=== PATIENT | male | born 1940 | race Caucasian/White ===

== ENCOUNTER 2018-05-05 20:04 | Inpatient (IN) ==
[2018-05-05] MEDS ORDERED: Sod Chloride 0.9% Inj 1,000 ML IV.SIG ONE (20:28)
--- NOTE | 2018-05-05 20:38 | ED ---
HPI General Chief complaint: Altered Mental Status Stated complaint: Cardiac complaint Time Seen by Provider: 05/05/18 20:27 Source: patient and EMS Mode of arrival: EMS Limitations: no limitations History of Present Illness HPI Narrative: 77-year-old male presents to the emergency department from local assisted living [facility] for evaluation of generalized weakness. According to the project coordinator rn report the patient activated his own medic alert button and paramedics found him in his room sitting in chair with generalized weakness. Upon their initial assessment patient was afebrile blood sugar was 131 patient was hypotensive and was noted on monitor to be in a sinus tachycardia with frequent unifocal PVCs. Patient was administered supplemental oxygen as well as a bolus of normal saline with improvement of blood pressure as well as decreased rate of sinus tachycardia and diminished frequency of unifocal PVCs. Paramedics stated that his plan was to start patient on a bolus of lidocaine however reportedly the patient refused lidocaine administration. Patient reports no known allergies. Patient here states that he accidentally hit his medic alert button while he was transferred positioning from the bed to his chair and had not felt poorly and had no intention of calling paramedics. Patient states he normally has a low blood pressure and that is normal for him. Patient has an indwelling morphine pain pump that he states was last filled approximately 1 year ago and has not been refilled and has had previous prescription for Percocet for neck pain which he does not have at this time and does not take also was given prescription by his primary care provider Dr. Emanuel tramadol which she also does not take. Patient does not report headache confusion difficulty with vision fever has had mild cough no shortness of breath no chest pain no palpitations no abdominal pain no reported nausea or vomiting no difficulty with bowel movements and no dysuria. Patient denies any pain at this time. Patient denies any focal weakness. Patient denies any fever chills. Patient states he has no chronic medical conditions and takes no prescription medications. According to paramedics a family member was present briefly at the assisted living facility but left before the paramedics could question them regarding the patient's medical history. No family members transported with the patient. According to the paramedics patient also commented that he could not remember anything past breakfast this morning patient states that he he does not recall eating lunch but he typically does not eat lunch and does not report any other activities throughout the day since breakfast until the paramedics arrived. Patient reportedly lives at assisted living [facility] and the independent living side and this is still living facility staff reportedly does not have access to any of his medical history medications allergies and he is not monitored as far as his medical appointments or activity, per EMS report. Complaint: generalized weakness Onset (ago): unknown (possibly since this morning) Duration: other (unknown) Location: generalized Severity: moderate Quality: other (none) Relieving factors: none Exacerbating factors: none Context: other (patient denies) Related Data Home Medications Medication Instructions Recorded Confirmed tramadol See Label Instructions .ROUTE 05/05/18 05/05/18 .COMPLEX Allergies Allergy/AdvReac Type Severity Reaction Status Date / Time No Known Allergies Allergy Verified 05/05/18 21:01 Review of Systems ROS: all other systems reviewed are negative PMFSH History History Provided By: Patient (chronic neck pain; indwelling morphine pain pump) Surgical History Surgical History H/O neck surgery (Acute) Social History Social History Substance History: No History of Abuse Smoking Status: Unknown if ever smoked How Often Do You Have a Drink Containing Alcohol: Never Recent Travel in [facility] within the Last 8 Weeks: No Recent Out of Country Travel within the Last 8 Weeks: No Exam Narrative Exam Narrative: GENERAL: Well-developed well-nourished male in no acute distress no respiratory distress GCS 14 mild confusion as to day of the week but knows today's date SKIN: Focused skin assessment warm/dry. HEAD: Atraumatic. Normocephalic. EYES: Pupils equal and round. No scleral icterus. No injection or drainage. ENT: No nasal bleeding or discharge. Mucous membranes pink and moist. Airway is patent. NECK: Trachea midline. No JVD. Supple no midline tenderness to direct palpation. CARDIOVASCULAR: Increased regular rate and rhythm. No murmur appreciated. RESPIRATORY: No accessory muscle use. Clear to auscultation. Breath sounds equal bilaterally. GASTROINTESTINAL: Abdomen soft, non-tender, nondistended. Hepatic and splenic margins not palpable. MUSCULOSKELETAL: No obvious deformities. No clubbing. No cyanosis. No edema. NEUROLOGICAL: Awake and alert. No obvious cranial nerve deficits. Motor grossly within normal limits. No pronator drift. No limb ataxia. Sensory exam grossly intact. Normal speech. PSYCHIATRIC: Appropriate mood and affect; insight and judgment normal. Course Consultations Consultation #1: discussed with Dr Sanchez Re: admission for sepsis Initial Documented Vital Signs Temperature 99.2 F 05/05/18 20:30 Pulse Rate 126 H 05/05/18 20:30 Respiratory Rate 16 05/05/18 20:30 Blood Pressure 116/66 05/05/18 20:30 Pulse Oximetry 94 L 05/05/18 20:30 Last Documented Vital Signs Temperature 99.2 F 05/05/18 20:30 Pulse Rate 101 H 05/05/18 22:44 Respiratory Rate 14 05/05/18 22:44 Blood Pressure 96/56 L 05/05/18 22:44 Pulse Oximetry 96 05/05/18 22:44 Critical Care Time Critical Care Time: Yes Total Critical Care Time: 30 Attestation: Aggregate critical care time was 30 minutes. Time to perform other separately billable procedures was not included in the critical care time. My time did not include minutes spent treating any other patients simultaneously or on activities that did not directly contribute to the patient's treatment. The services I provided to this patient were to treat and/or prevent clinically significant deterioration that could result in: Respiratory failure, septic shock, arrhythmia, I provided critical care services requiring my management, as noted below: Chart data review, documentation time, medication orders and management, vital sign assessments/reviewing monitor data, ordering and reviewing lab tests, ordering and interpreting/reviewing x-rays and diagnostic studies, care of the patient and discussion of the patient with the admitting physicians. Medical Decision Making MDM Narrative Medical decision making narrative: 77-year-old male presents to the emergency department from assisted living facility with generalized weakness hypotension tachycardia and previous multiple unifocal PVCs heart rate has improved however remains tachycardic given additional IV fluid bolus normotensive systolic [address] brain noncontrast ordered blood sugar reportedly 131 per EMS EKG is sinus tachycardia rate [address] elevation injury pattern or ectopy noted although age-indeterminate septal changes for possible previous septal [place] At 9:25 PM brother is at bedside patient is able to identify who his brother is still knows the date and now knows the day of the week. Heart rate is 115 blood pressure is 104/58 patient given initial bolus of normal saline patient is identified to have leukocytosis of 20,600 with left shift 93% neutrophils stable hemoglobin of 14 and platelet count patient also identified to have elevated lactic acid level of 3.5 chest x-ray reveals no obvious lobar infiltrate or acute finding patient has no obvious skin rash urinalysis is pending on chemistries patient has hypokalemia of 3.1 oral potassium 40 mg administered patient also noted to have some renal insufficiency with a creatinine of 1.6 and patient identified to have hypomagnesemia 1.3 patient given 1 g of magnesium sulfate IV piggyback. Patient will be admitted for severe sepsis with tachycardia leukocytosis with left shift elevated lactic acid and report of hypotension; source unknown patient's mentation has improved to GCS of 15 patient has no headache no nuchal rigidity. Patient may have early pneumonia although no infiltrate is identified on chest x-ray patient does have congested wet cough. We will also follow-up on urinalysis results patient presumptively administered IV Zosyn and vancomycin as part of initial evaluation for altered mental status with tachycardia and low-grade temperature elevation. Patient is aware of plan for admission with which she is agreeable. Brother at bedside is aware patient will be admitted. CK total 110 not elevated troponin I 0.04, not elevated TSH is 0.387 this is within normal range Medical Screen Exam Complete: Yes Emergency Medical Condition: Yes Differential Diagnosis Differential Diagnosis: Generalized weakness, anemia, sepsis, TIA, CVA, pneumonia, UTI, arrhythmia, ACS, [place] Medical Records Medical records reviewed: Yes I reviewed the patient's medical records. no prior HH visit Lab Data Lab results reviewed: Yes I reviewed the patient's lab results. Result diagrams: 05/05/18 20:40 05/05/18 20:40 Lab Results 05/05/18 05/05/18 05/05/18 Range/Units 20:40 20:40 20:40 WBC 20.6 H (4.0-11.0) th/mm3 RBC 4.46 L (4.50-5.90) mil/mm3 Hgb 14.2 (13.0-17.0) gm/dL Hct 41.1 (39.0-51.0) % MCV 92.0 (80.0-100.0) fL MCH 31.7 (27.0-34.0) pg MCHC 34.5 (32.0-36.0) % RDW 13.6 (11.6-17.2) % Plt Count 194 (150-450) th/mm3 MPV 7.5 (7.0-11.0) fL Neut % (Auto) 93.9 H (16.0-70.0) % Lymph % (Auto) 1.7 L (9.0-44.0) % [place] % (Auto) 4.3 (0.0-8.0) % Eos % (Auto) 0.0 (0.0-4.0) % Baso % (Auto) 0.1 (0.0-2.0) % Neut # (Auto) 19.4 H (1.8-7.7) th/mm3 Lymph # (Auto) 0.4 L (1.0-4.8) th/mm3 [place] # (Auto) 0.9 (0.0-0.9) th/mm3 Eos # (Auto) 0.0 (0.0-0.4) th/mm3 Baso # (Auto) 0.0 (0.0-0.2) th/mm3 WBC Differential . Differential Comment Auto diff final PT 12.0 H (9.8-11.6) sec INR 1.2 Ratio Sodium 141 (136-145) meq/L Potassium 3.1 L (3.5-5.1) meq/L Chloride 105 (98-107) meq/L Carbon Dioxide 23.9 (21.0-32.0) meq/L Anion Gap 12 (5-15) meq/L BUN 18 (7-18) mg/dL Creatinine 1.60 H (0.60-1.30) mg/dL Estimated GFR 42 L (>89) mL/min Random Glucose 122 H (74-106) mg/dL Lactic Acid (0.4-2.0) mmol/L Calcium 8.2 L (8.5-10.1) mg/dL Magnesium 1.3 L (1.5-2.5) mg/dL Total Bilirubin 0.6 (0.2-1.0) mg/dL AST 30 (15-37) U/L ALT 35 (12-78) U/L Alkaline Phosphatase 60 (45-117) U/L Total Creatine Kinase 110 (39-308) U/L Troponin I 0.04 (0.02-0.05) ng/mL Total Protein 6.8 (6.4-8.2) g/dL Albumin 3.1 L (3.4-5.0) g/dL TSH 0.387 (0.358-3.740) uIU/mL Urine Color (Yellw/Straw) Urine Clarity (Clear) Urine pH (5.0-8.5) Ur Specific Burke (1.002-1.035) Urine Protein (Neg-Trace) mg/dL Urine Glucose (UA) (Negative) mg/dL Urine Ketones (Negative) mg/dL Urine Occult Blood (Negative) Urine Nitrate (Negative) Urine Bilirubin (Negative) Urine Urobilinogen (Less than 2) mg/dL Ur Leukocyte Esterase (Negative) Urine RBC (0-3) /hpf Urine WBC (0-5) /hpf Ur Squamous Epith Cells (0-5) /hpf Urine Bacteria (None) /hpf Urine Mucus (Occasional) /lpf Micro UA Comment Ur Microscopic Review Urine Culture Comments 05/05/18 05/05/18 05/05/18 Range/Units 20:40 21:55 22:55 WBC (4.0-11.0) th/mm3 RBC (4.50-5.90) mil/mm3 Hgb (13.0-17.0) gm/dL Hct (39.0-51.0) % MCV (80.0-100.0) fL MCH (27.0-34.0) pg MCHC (32.0-36.0) % RDW (11.6-17.2) % Plt Count (150-450) th/mm3 MPV (7.0-11.0) fL Neut % (Auto) (16.0-70.0) % Lymph % (Auto) (9.0-44.0) % [place] % (Auto) (0.0-8.0) % Eos % (Auto) (0.0-4.0) % Baso % (Auto) (0.0-2.0) % Neut # (Auto) (1.8-7.7) th/mm3 Lymph # (Auto) (1.0-4.8) th/mm3 [place] # (Auto) (0.0-0.9) th/mm3 Eos # (Auto) (0.0-0.4) th/mm3 Baso # (Auto) (0.0-0.2) th/mm3 WBC Differential Differential Comment PT (9.8-11.6) sec INR Ratio Sodium (136-145) meq/L Potassium (3.5-5.1) meq/L Chloride (98-107) meq/L Carbon Dioxide (21.0-32.0) meq/L Anion Gap (5-15) meq/L BUN (7-18) mg/dL Creatinine (0.60-1.30) mg/dL Estimated GFR (>89) mL/min Random Glucose (74-106) mg/dL Lactic Acid 3.5 H 2.0 (0.4-2.0) mmol/L Calcium (8.5-10.1) mg/dL Magnesium (1.5-2.5) mg/dL Total Bilirubin (0.2-1.0) mg/dL AST (15-37) U/L ALT (12-78) U/L Alkaline Phosphatase (45-117) U/L Total Creatine Kinase (39-308) U/L Troponin I (0.02-0.05) ng/mL Total Protein (6.4-8.2) g/dL Albumin (3.4-5.0) g/dL TSH (0.358-3.740) uIU/mL Urine Color Iris (Yellw/Straw) Urine Clarity Hazy H (Clear) Urine pH 5.0 (5.0-8.5) Ur Specific Burke 1.023 (1.002-1.035) Urine Protein 30 H (Neg-Trace) mg/dL Urine Glucose (UA) Negative (Negative) mg/dL Urine Ketones Trace H (Negative) mg/dL Urine Occult Blood Large H (Negative) Urine Nitrate Negative (Negative) Urine Bilirubin Negative (Negative) Urine Urobilinogen 2.0 H (Less than 2) mg/dL Ur Leukocyte Esterase Negative (Negative) Urine RBC 103 H (0-3) /hpf Urine WBC 5 (0-5) /hpf Ur Squamous Epith Cells <1 (0-5) /hpf Urine Bacteria Rare H (None) /hpf Urine Mucus Few H (Occasional) /lpf Micro UA Comment Culture not ind Ur Microscopic Review Not Reportable Urine Culture Comments Culture not ind Imaging Data Radiologist's impression: Chest X-Ray 05/05/18 20:28 CONCLUSION: 1. Elevation of the right hemidiaphragm. 2. No focal infiltrate or pulmonary vascular congestion. Head CT 05/05/18 20:29 CONCLUSION: 1. Age-appropriate atrophy. 2. No acute findings in the brain. . ECG Data EKG Prior to Arrival: No Prior ECG tracings: not available for review Interpretation: EKG sinus tachycardia rate [address] elevation injury pattern or ectopy noted Discharge Plan Discharge Disposition Patient Disposition: 30 Still Patient Discharge Condition Condition: Stable Discharge Details Diagnosis: Severe sepsis, Altered mental status, PVC's (premature ventricular contractions ) Physicians Team ED Provider: Adriana Mackey Primary Care Provider: Yogesh Emanuel Rxs /Orders / Referrals /Forms Prescriptions: No Action tramadol 50 mg Tablet See Label Instructions .ROUTE .COMPLEX RF: 0 Discharge Interventions Interventions: Vital Signs Last Done: 05/05/18 22:44 Status ED Status: With Doctor
--- NOTE | 2018-05-05 20:52 | XR ---
EXAM DATE: 05/05/2018 8:47 PM EDT AGE/SEX: 77 years / Male INDICATIONS: Cough. CLINICAL DATA: This is the patient's initial encounter. Patient reports that signs and symptoms have been present for 1 day and indicates a pain score of 0/10. MEDICAL/SURGICAL HISTORY: None. None. COMPARISON: No prior exams available for comparison. FINDINGS: There is elevation of the right hemidiaphragm. The heart is normal. The pulmonary vascular pattern is normal. The lungs are clear. CONCLUSION: 1. Elevation of the right hemidiaphragm. 2. No focal infiltrate or pulmonary vascular congestion. Electronically signed by: Jus Glasgow MD 05/05/2018 8:51 PM EDT
[2018-05-05 20:59] LABS: Baso % (Auto) 0.1 % (0.0-2.0); Hematocrit 41.1 % (39.0-51.0); Hemoglobin 14.2 gm/dL (13.0-17.0); Lymph # (Auto) 0.4 th/mm3 (1.0-4.8); Lymph % (Auto) 1.7 % (9.0-44.0); Mean Corpuscular HGB Conc 34.5 % (32.0-36.0); Mean Corpuscular Hemoglobin 31.7 pg (27.0-34.0); Mean Platelet Volume 7.5 fL (7.0-11.0); Mono # (Auto) 0.9 th/mm3 (0.0-0.9); Mono % (Auto) 4.3 % (0.0-8.0); Neut # (Auto) 19.4 th/mm3 (1.8-7.7); Neut % (Auto) 93.9 % (16.0-70.0); Platelet Count 194 th/mm3 (150-450); Red Blood Count 4.46 mil/mm3 (4.50-5.90); Red Cell Distribution Width 13.6 % (11.6-17.2); White Blood Count 20.6 th/mm3 (4.0-11.0)
[2018-05-05 21:13] LABS: Albumin 3.1 g/dL (3.4-5.0); Anion Gap 12 meq/L (5-15); Aspartate Aminotransferase 30 U/L (15-37); Blood Urea Nitrogen 18 mg/dL (7-18); Calcium 8.2 mg/dL (8.5-10.1); Carbon Dioxide 23.9 meq/L (21.0-32.0); Chloride 105 meq/L (98-107); Glomerular Filtration Rate 42 mL/min (>89); Glucose,Random 122 mg/dL (74-106); INR 1.2 Ratio; Magnesium 1.3 mg/dL (1.5-2.5); Potassium 3.1 meq/L (3.5-5.1); Sodium 141 meq/L (136-145)
[2018-05-05 21:14] LABS: Alanine Aminotransferase 35 U/L (12-78)
[2018-05-05] MEDS ORDERED: Piperacil/Tazo 4.5 GM Premix 4.5 GM/100 ML BAG IV.SIG ONE (21:18)
[2018-05-05] MEDS ORDERED: Vancomycin Inj 1,000 MG in Sodium Chlor 0.9% Inj 250 ML IV.SIG ONE (21:18)
[2018-05-05] MEDS ORDERED: Mag Sulf 1 gm/100 ml Premix 100 ML IV.SIG ONE (21:20)
[2018-05-05] MEDS ORDERED: Thiamine Inj 100 MG in Sodium Chlor 0.9% Inj 100 ML IV.SIG ONE (21:21)
[2018-05-05 21:23] LABS: Alkaline Phosphatase 60 U/L (45-117); Creatine Kinase 110 U/L (39-308); Thyroid Stimulating Hormone 0.387 uIU/mL (0.358-3.740); Total Protein 6.8 g/dL (6.4-8.2); Troponin I 0.04 ng/mL (0.02-0.05)
[2018-05-05 23:03] LABS: Bacteria,Urine Rare /hpf; Bilirubin,Urine Negative (Negative); Clarity,Urine Hazy (Clear); Color,Urine Amber (Yellw/Straw); Glucose,Urine (UA) Negative (Negative); Leukocyte Esterase,Urine Negative (Negative); Mucus,Urine Few /lpf (Occasional); Nitrite,Urine Negative (Negative); Specific Gravity,Urine 1.023 (1.002-1.035); Squamous Epithelial Cell,Urine <1 /hpf (0-5)
--- NOTE | 2018-05-05 23:32 | CT ---
EXAM DATE: 05/05/2018 11:19 PM EDT AGE/SEX: 77 years / Male INDICATIONS: Altered mental status. CLINICAL DATA: This is the patient's initial encounter. Patient reports that signs and symptoms have been present for 1 day and indicates a pain score of 0/10. MEDICAL/SURGICAL HISTORY: None. Fusion, cervical. RADIATION DOSE: 46.13 CTDI (mGy) COMPARISON: No prior exams available for comparison. TECHNIQUE: CT of the head without contrast. Using automated exposure control and adjustment of the mA and/or kV according to patient size, radiation dose was kept as low as reasonably achievable to ob tain optimal diagnostic quality images. DICOM format image data is available electronically for revi ew and comparison. FINDINGS: Cerebrum: The ventricles are normal for age. No evidence of midline shift, mass lesion, hemorrhage or acute infarction. No extraaxial fluid collections are seen. Posterior Fossa: The cerebellum and brainstem are intact. The 4th ventricle is midline. The cerebe llopontine angle is unremarkable. Extracranial: The visualized portion of the orbits is intact. Skull: The calvaria is intact. No evidence of skull fracture. CONCLUSION: 1. Age-appropriate atrophy. 2. No acute findings in the brain. . Electronically signed by: Jose Joya MD 05/05/2018 11:31 PM EDT
[2018-05-05] MEDS ORDERED: Sodium Chlor 0.9% Inj 500 ML IV.SIG SCH (23:45)
[2018-05-06] MEDS ORDERED: Vancomycin Consult Pharmacy OTHER PRN (00:19)
[2018-05-06] MEDS ORDERED: Acetaminophen 325 MG Tablet PO PRN ×2 (00:20→00:36)
[2018-05-06] MEDS ORDERED: Bisacodyl 10 MG Supp RECTAL PRN (00:20)
--- NOTE | 2018-05-06 00:23 | P.HPIM ---
History of Present Illness Primary Care Physician: Yogesh Emanuel MD History of Present Illness: This is a 77-year-old male with no significant PMH who was sent to the ER from [facility] due to generalized weakness. Per report, pt had activated his medical alert button, however he states it was unintentional. Upon EMS arrival, pt noted to hypotensive and tachycardic w/ multiple PVCs, s/p IVF w/ improvement. Reports ongoing cough for "few months" w/ white-colored sputum, seen by PCP and told it was due to allergies, however now w/ yellow/green-colored sputum x1 wk. Denies fever, chills, SOB or chest pain. On arrival, BP 116/66, HR 126, O2 sat 94% on RA, Temp 99.2. CBC 20.6. INR 1.2. K+ 3.1. Creatinine 1.60, previously 1.29 on 02/28/18. Lactic Acid 3.5. CXR w/ no acute findings. U/a w/ hematuria, negative for UTI. S/p Vanc/Zosyn - Diagnosis (1) Sepsis (2) Hypotension (3) REFUGIO (acute kidney injury) (4) Hematuria (5) Hypokalemia Inpatient Certification: I certify that the inpatient services were ordered in accordance with Medicare regulations governing the order. This includes certification that hospital inpatient services are reasonable and necessary and in the case of services not specified as inpatient-only under 42 CFR 419.22(n), that they are appropriately provided as inpatient services in accordance to with the 2-midnight benchmark under 43 CFR 412.3(e) Estimated Total Length of Stay (Days): 2 Plans for Post Hospital Care: Not yet determined Review of Systems PAST FAMILY HISTORY: Reviewed. No h/o DM or CAD All other systems reviewed negative except as stated in HPI PMFSH - History History Provided By: Patient (chronic neck pain; indwelling morphine pain pump) - Surgical History Surgical History: Surgical History (Last Updated 05/05/18 @ 21:00 by Marycruz Soria) H/O neck surgery - Tobacco History Smoking Status: Unknown if ever smoked - Alcohol History How Often Do You Have a Drink Containing Alcohol: Never - Substance Use History Substance History: No History of Abuse - Travel History Recent Travel in the [place] Within the Last 8 Weeks: No Recent Travel Out of the Country Within the Last 8 Weeks: No - Immunization History Tetanus Immunization: Unsure Medications and Allergies Active Medications: Active Medications Acetaminophen (Tylenol) 650 mg PO Q4H PRN PRN Reason: Temp > 100.4 Al Hydroxide/Mg Hydroxide (Milk Of Magnesia Liq) 30 ml PO Q12H PRN PRN Reason: Mild Constipation Bisacodyl (Dulcolax Supp) 10 mg RECTAL DAILY PRN PRN Reason: SEVERE CONSITIPATION Sodium Chloride (Ns Inj) 500 mls @ 0 mls/hr IV.SIG BOLUS JOSE Cefepime HCl 1,000 mg/ Sodium (Chloride) 100 mls @ 200 mls/hr IV.SIG Q12H JOSE Sodium Chloride (Ns Inj) 1,000 mls @ 100 mls/hr IV.CONT .Q10H JOSE Lactulose (Lactulose Liq) 30 ml PO DAILY PRN PRN Reason: SEVERE CONSITIPATION Ondansetron HCl (Zofran Inj) 4 mg IV.PUSH Q6H PRN PRN Reason: NAUSEA OR VOMITING Pharmacy Profile Note (Vancomycin Consult Pharmacy) 1 each OTHER UNSCH PRN PRN Reason: Pharmacy to dose Senna/Docusate Sodium (Elza-Colace) 1 tab PO BID JOSE Sennosides (Senokot) 17.2 mg PO Q12H PRN PRN Reason: Moderate Constipation Sodium Chloride (Ns Flush) 2 ml IV.FLUSH PRN PRN PRN Reason: FLUSH AFTER USING IV ACCESS Allergies Allergy/AdvReac Type Severity Reaction Status Date / Time No Known Allergies Allergy Verified 05/05/18 21:01 Home Medications Medication Instructions Recorded Confirmed Type tramadol See Label Instructions .ROUTE 05/05/18 05/05/18 History .COMPLEX Exam Vital signs: Vital Signs 05/05/18 20:30 05/05/18 21:05 05/05/18 22:44 Temperature 99.2 F Pulse Rate 126 H 114 H 101 H Respiratory Rate 16 16 14 Blood Pressure 116/66 104/58 L 96/56 L Pulse Oximetry 94 L 95 96 Intake & Output 05/05/18 05/05/18 05/06/18 06:59 18:59 06:59 Intake Total 1450 / 1450 Balance 1450 / 1450 Weight 77.111 kg Intake: IV 1450 / 1450 Magnesium Sulfate 1 gm/D5W 100 100 / 100 ml Premix 100 ML @ 100 mls/hr IV.SIG ONCE ONE Rx#:[id number] Zosyn 4.5 GM Premix 4.5 gm In 100 / 100 100 ml @ 200 mls/hr IV.SIG ONCE ONE Rx#:[id number] NS Inj 1,000 ML @ Wide Open IV. 1000 / 1000 SIG BOLUS ONE Rx#:[id number] Vancomycin Inj 1,000 MG In NS 250 / 250 Inj 250 ML @ 250 mls/hr IV.SIG ONCE ONE Rx#:[id number] Narrative: PE: GENERAL: Elderly white male in no acute distress. Normal mentation, following commands. SKIN: Focused skin assessment warm and dry. HEENT: PERRLA, EOMI. No scleral icterus or conjunctival pallor. No lid lag or facial droop. CARDIOVASCULAR: Regular rate and rhythm. No obvious murmurs to auscultation. No chest tenderness to palpation. RESPIRATORY: No obvious rhonchi or wheezing. Clear to auscultation. Breath sounds equal bilaterally. GASTROINTESTINAL: Abdomen soft, non-tender, nondistended. BS normal. MUSCULOSKELETAL: Extremities without clubbing, cyanosis, or edema. No obvious deformities. NEUROLOGICAL: Awake, alert and oriented x4. No focal neurologic deficits. Moving both upper and lower extremities spontaneously. PSYCHIATRIC: Appropriate mood and affect. Insight and judgment normal. Results - Labs CBC & Chem 7: 05/05/18 20:40 05/05/18 20:40 Labs: Short CBC 05/05/18 Range/Units 20:40 WBC 20.6 H (4.0-11.0) th/mm3 Hgb 14.2 (13.0-17.0) gm/dL Hct 41.1 (39.0-51.0) % Plt Count 194 (150-450) th/mm3 BMP 05/05/18 20:40 Sodium 141 Potassium 3.1 L Chloride 105 Carbon Dioxide 23.9 BUN 18 Creatinine 1.60 H Calcium 8.2 L Cardiac Enzymes 05/05/18 Range/Units 20:40 Total Creatine Kinase 110 (39-308) U/L Troponin I 0.04 (0.02-0.05) ng/mL Liver Function 05/05/18 Range/Units 20:40 Total Bilirubin 0.6 (0.2-1.0) mg/dL AST 30 (15-37) U/L ALT 35 (12-78) U/L Alkaline Phosphatase 60 (45-117) U/L Albumin 3.1 L (3.4-5.0) g/dL Urine 05/05/18 Range/Units 21:55 Urine Color Iris (Yellw/Straw) Urine Clarity Hazy H (Clear) Urine pH 5.0 (5.0-8.5) Ur Specific [place] 1.023 (1.002-1.035) Urine Protein 30 H (Neg-Trace) mg/dL Urine Glucose (UA) Negative (Negative) mg/dL - Imaging Impressions Chest X-Ray 05/05/18 20:28 CONCLUSION: 1. Elevation of the right hemidiaphragm. 2. No focal infiltrate or pulmonary vascular congestion. Head CT 05/05/18 20:29 CONCLUSION: 1. Age-appropriate atrophy. 2. No acute findings in the brain. . Caprini VTE Risk Assessment Caprini VTE Risk Assessment: No/Low Risk (score <= 1) Caprini Risk Assessment Model: Point Value = 1 Point Value = 2 Point Value = 3 Point Value = 5 Age 41-60 Minor surgery BMI > 25 kg/m2 Swollen legs Varicose veins or History of unexplained or recurrent spontaneous Oral contraceptives or hormone replacement Sepsis (< 1 month) Serious lung disease, including pneumonia (< 1 month) Abnormal pulmonary function Acute myocardial infarction Congestive heart failure (< 1 month) History of inflammatory bowel disease Medical patient at bed rest Age 61-74 Arthroscopic surgery Major open surgery (> 45 min) Laparoscopic surgery (> 45 min) Malignancy Confined to bed (> 72 hours) Immobilizing plaster cast Central venous access Age >= 75 History of VTE Family history of VTE Factor V Leiden Prothrombin [id number] Lupus anticoagulant Anticardiolipin antibodies Elevated serum homocysteine Heparin-induced thrombocytopenia Other congenital or acquired thrombophilia Stroke (< 1 month) Elective arthroplasty Hip, pelvis, or leg fracture Acute spinal cord injury (< 1 month) Prophylaxis Regimen: Total Risk Factor Score Risk Level Prophylaxis Regimen 0-1 Low Early ambulation 2 Moderate Order ONE of the following: *Sequential Compression Device (SCD) *Heparin 5000 units SQ BID 3-4 Higher Order ONE of the following medications: *Heparin 5000 units SQ TID *Enoxaparin/Lovenox 40 mg SQ daily (WT < 150 kg, CrCl > 30 mL/min) *Enoxaparin/Lovenox 30 mg SQ daily (WT < 150 kg, CrCl > 10-29 mL/min) *Enoxaparin/Lovenox 30 mg SQ BID (WT < 150 kg, CrCl > 30 mL/min) AND/OR *Sequential Compression Device (SCD) 5 or more Highest Order ONE of the following medications: *Heparin 5000 units SQ TID (Preferred with Epidurals) *Enoxaparin/Lovenox 40 mg SQ daily (WT < 150 kg, CrCl > 30 mL/min) *Enoxaparin/Lovenox 30 mg SQ daily (WT < 150 kg, CrCl > 10-29 mL/min) *Enoxaparin/Lovenox 30 mg SQ BID (WT < 150 kg, CrCl > 30 mL/min) AND *Sequential Compression Device (SCD) Assessment and Plan - Assessment (1) Sepsis Code(s): A41.9 - Sepsis, unspecified organism Status: Acute (2) Hypotension Code(s): I95.9 - Hypotension, unspecified Status: Acute (3) REFUGIO (acute kidney injury) Code(s): N17.9 - Acute kidney failure, unspecified Status: Acute (4) Hematuria Code(s): R31.9 - Hematuria, unspecified Status: Acute (5) Hypokalemia Code(s): E87.6 - Hypokalemia Status: Acute - Plan A/P: 1. Sepsis: Temp 99.2, HR 126, WBC 20, Source-unclear, suspected early PNA. S/ p Blood cultures, IV Vanc/Zosyn, continue w/ IV Abx, follow up cultures. Lactic Acid 3.5, repeat 2.0. IVF for hydration. 2. Hypotension: Likely secondary to above, states baseline BP "110's", BP 90' s while in ER, continue w/ IVF, monitor I/O, normal mental status. 3. REFUGIO: Creatinine 1.60, previously 1.29 on 02/28/18, IVF for hydration, monitor I/O, repeat labs in am. 4. Hematuria: U/a w/ significant hematuria, mild bacteriuria, will monitor, continue w/ IV Abx for sepsis, repeat U/a in 1-2wks to eval for persistent hematuria. 5. Hypokalemia: K+ 3.1, s/p 40mEq K+ replacement, will recheck and replace as needed. 6. DVT Prophylaxis: SCD/Teds 7. Social work for d/c planning as needed. 8. Case discussed w/ ER physician at length, labs/records/imaging reviewed by me.
[2018-05-06] MEDS: Sod Chloride 0.9% Inj 1,000 ML IV.CONT SCH ×3 (02:33→22:07)
[2018-05-06] MEDS ORDERED: Senna/Docusate Sodium 8.6/50 MG Tablet PO SCH (09:00)
[2018-05-06 09:37] LABS: Baso % (Auto) 0.2 % (0.0-2.0); Hematocrit 37.7 % (39.0-51.0); Hemoglobin 12.8 gm/dL (13.0-17.0); Lymph # (Auto) 1.1 th/mm3 (1.0-4.8); Lymph % (Auto) 5.5 % (9.0-44.0); Mean Corpuscular Hemoglobin 31.5 pg (27.0-34.0); Mean Corpuscular Volume 92.5 fL (80.0-100.0); Mean Platelet Volume 7.5 fL (7.0-11.0); Mono # (Auto) 1.6 th/mm3 (0.0-0.9); Neut # (Auto) 17.2 th/mm3 (1.8-7.7); Neut % (Auto) 86.3 % (16.0-70.0); Platelet Count 175 th/mm3 (150-450); Red Blood Count 4.07 mil/mm3 (4.50-5.90); Red Cell Distribution Width 14.2 % (11.6-17.2)
[2018-05-06 09:55] LABS: Calcium 7.8 mg/dL (8.5-10.1); Carbon Dioxide 21.6 meq/L (21.0-32.0); Potassium 3.7 meq/L (3.5-5.1)
[2018-05-06] MEDS ORDERED: Vancomycin Inj 1,250 MG in Sodium Chlor 0.9% Inj 250 ML IV.SIG SCH (12:00)
--- NOTE | 2018-05-06 14:17 | P.PNIM ---
Subjective Interval history: Follow-up for SIRS. Patient complains of very scant cough, and just after he eats. No fever or chills. He denies any abdominal pain. He has had 2 loose bowel movements today. He denies any dysuria. Reports a long history of kidney stones. Physical Exam Vital signs: Vital Signs 05/05/18 20:30 05/05/18 21:05 05/05/18 22:44 Temperature 99.2 F Pulse Rate 126 H 114 H 101 H Respiratory Rate 16 16 14 Blood Pressure 116/66 104/58 L 96/56 L Pulse Oximetry 94 L 95 96 05/06/18 02:45 05/06/18 03:16 05/06/18 04:00 Temperature 98 F 98 F Pulse Rate 92 H 84 90 Respiratory Rate 18 16 Blood Pressure 103/56 L 109/65 Pulse Oximetry 100 99 05/06/18 08:00 Temperature 98.0 F Pulse Rate 85 Respiratory Rate 17 Blood Pressure 108/57 L Pulse Oximetry 95 Intake & Output 05/05/18 05/06/18 05/06/18 18:59 06:59 18:59 Intake Total 1551 / 1551 Balance 1551 / 1551 Weight 166 lb 7.184 oz Intake: IV 1551 / 1551 Magnesium Sulfate 1 gm/D5W 100 100 / 100 ml Premix 100 ML @ 100 mls/hr IV.SIG ONCE ONE Rx#:[id number] Zosyn 4.5 GM Premix 4.5 gm In 100 / 100 100 ml @ 200 mls/hr IV.SIG ONCE ONE Rx#:[id number] NS Inj 1,000 ML @ Wide Open IV. 1000 / 1000 SIG BOLUS ONE Rx#:[id number] Thiamine Inj 100 MG In NS Inj 101 / 101 100 ML @ 100 mls/hr IV.SIG ONCE ONE Rx#:[id number] Vancomycin Inj 1,000 MG In NS 250 / 250 Inj 250 ML @ 250 mls/hr IV.SIG ONCE ONE Rx#:[id number] Other: Date of Last Bowel Movement 05/06/18 Weight On Admission 170 lb 0.01 oz Narrative: GENERAL: Well-developed well-nourished. In no acute distress. SKIN: Warm and dry. No lesions noted. CARDIOVASCULAR: Regular rate and rhythm. No murmur appreciated. RESPIRATORY: No accessory muscle use. Clear to auscultation. Breath sounds equal bilaterally. GASTROINTESTINAL: Abdomen soft, non-tender, nondistended. Bowel sounds x4. Pain pump in place right abdomen. MUSCULOSKELETAL: No obvious deformities. No clubbing or cyanosis. No edema. NEUROLOGICAL: Awake and alert. No focal neurological deficits. Moves upper and lower extremities spontaneously. Normal speech. PSYCHIATRIC: Appropriate mood and affect; insight and judgment normal. Results - Labs CBC & Chem 7: 05/06/18 09:04 05/06/18 09:04 Laboratory Results - last 24 hr 05/05/18 05/05/18 05/05/18 20:40 20:40 20:40 WBC 20.6 H RBC 4.46 L Hgb 14.2 Hct 41.1 MCV 92.0 MCH 31.7 MCHC 34.5 RDW 13.6 Plt Count 194 MPV 7.5 Neut % (Auto) 93.9 H Lymph % (Auto) 1.7 L [place] % (Auto) 4.3 Eos % (Auto) 0.0 Baso % (Auto) 0.1 Neut # (Auto) 19.4 H Lymph # (Auto) 0.4 L [place] # (Auto) 0.9 Eos # (Auto) 0.0 Baso # (Auto) 0.0 WBC Differential . Differential Comment Auto diff final PT 12.0 H INR 1.2 Sodium 141 Potassium 3.1 L Chloride 105 Carbon Dioxide 23.9 Anion Gap 12 BUN 18 Creatinine 1.60 H Estimated GFR 42 L POC Glucose Random Glucose 122 H Lactic Acid Calcium 8.2 L Magnesium 1.3 L Total Bilirubin 0.6 AST 30 ALT 35 Alkaline Phosphatase 60 Total Creatine Kinase 110 Troponin I 0.04 Total Protein 6.8 Albumin 3.1 L TSH 0.387 Urine Color Urine Clarity Urine pH Ur Specific [place] Urine Protein Urine Glucose (UA) Urine Ketones Urine Occult Blood Urine Nitrate Urine Bilirubin Urine Urobilinogen Ur Leukocyte Esterase Urine RBC Urine WBC Ur Squamous Epith Cells Urine Bacteria Urine Mucus Micro UA Comment Ur Microscopic Review Urine Culture Comments 05/05/18 05/05/18 05/05/18 20:40 21:55 22:55 WBC RBC Hgb Hct MCV MCH MCHC RDW Plt Count MPV Neut % (Auto) Lymph % (Auto) [place] % (Auto) Eos % (Auto) Baso % (Auto) Neut # (Auto) Lymph # (Auto) [place] # (Auto) Eos # (Auto) Baso # (Auto) WBC Differential Differential Comment PT INR Sodium Potassium Chloride Carbon Dioxide Anion Gap BUN Creatinine Estimated GFR POC Glucose Random Glucose Lactic Acid 3.5 H 2.0 Calcium Magnesium Total Bilirubin AST ALT Alkaline Phosphatase Total Creatine Kinase Troponin I Total Protein Albumin TSH Urine Color Iris Urine Clarity Hazy H Urine pH 5.0 Ur Specific [place] 1.023 Urine Protein 30 H Urine Glucose (UA) Negative Urine Ketones Trace H Urine Occult Blood Large H Urine Nitrate Negative Urine Bilirubin Negative Urine Urobilinogen 2.0 H Ur Leukocyte Esterase Negative Urine RBC 103 H Urine WBC 5 Ur Squamous Epith Cells <1 Urine Bacteria Rare H Urine Mucus Few H Micro UA Comment Culture not ind Ur Microscopic Review Not Reportable Urine Culture Comments Culture not ind 05/06/18 05/06/18 05/06/18 09:04 09:04 11:28 WBC 20.0 H RBC 4.07 L Hgb 12.8 L Hct 37.7 L MCV 92.5 MCH 31.5 MCHC 34.0 RDW 14.2 Plt Count 175 MPV 7.5 Neut % (Auto) 86.3 H Lymph % (Auto) 5.5 L [place] % (Auto) 8.0 Eos % (Auto) 0.0 Baso % (Auto) 0.2 Neut # (Auto) 17.2 H Lymph # (Auto) 1.1 [place] # (Auto) 1.6 H Eos # (Auto) 0.0 Baso # (Auto) 0.0 WBC Differential . Differential Comment Auto diff final PT INR Sodium 143 Potassium 3.7 Chloride 111 H Carbon Dioxide 21.6 Anion Gap 10 BUN 16 Creatinine 1.05 Estimated GFR 68 L POC Glucose 100 Random Glucose 92 Lactic Acid Calcium 7.8 L Magnesium Total Bilirubin AST ALT Alkaline Phosphatase Total Creatine Kinase Troponin I Total Protein Albumin TSH Urine Color Urine Clarity Urine pH Ur Specific [place] Urine Protein Urine Glucose (UA) Urine Ketones Urine Occult Blood Urine Nitrate Urine Bilirubin Urine Urobilinogen Ur Leukocyte Esterase Urine RBC Urine WBC Ur Squamous Epith Cells Urine Bacteria Urine Mucus Micro UA Comment Ur Microscopic Review Urine Culture Comments Microbiology 05/05/18 20:35 Blood - Peripheral Aerobic Blood Culture - Preliminary No growth in 1 day 05/05/18 20:35 Blood - Peripheral Anaerobic Blood Culture - Preliminary No growth in 1 day 05/05/18 20:40 Blood - Peripheral Aerobic Blood Culture - Preliminary No growth in 1 day 05/05/18 20:40 Blood - Peripheral Anaerobic Blood Culture - Preliminary No growth in 1 day - Imaging Impressions Chest X-Ray 05/05/18 20:28 CONCLUSION: 1. Elevation of the right hemidiaphragm. 2. No focal infiltrate or pulmonary vascular congestion. Head CT 05/05/18 20:29 CONCLUSION: 1. Age-appropriate atrophy. 2. No acute findings in the brain. . Assessment and Plan - Plan 77-year-old male with past medical history of chronic back pain who was sent to the ER from [facility] due to generalized weakness. Per report, pt had activated his medical alert button, however he states it was unintentional. Upon EMS arrival , pt noted to hypotensive and tachycardic. Temp 99.2. WBC 20.6. Creatinine 1.60, previously 1.29 on 02/28/18. Lactic Acid 3.5. CXR w/ no acute findings. U /a w/ hematuria, negative for UTI. SIRS: Unclear source. Possibly GI or . -We will check CT abdomen to evaluate for possible pyelonephritis, colitis, diverticulitis, etc. -Continue antibiotics with IV cefepime -Stool cultures for enteric pathogens and C. difficile. REFUGIO: Improving with IVF. -Continue IVF Hematuria: Possibly secondary to nephrolithiasis, rule out pyelonephritis -Monitor Discussed Condition With: Patient, RN, Dr. Dickey
[2018-05-06] MEDS ORDERED: Diatrizoate Meglum/Diatrizoate Sod Liq 9 ML UDC PO ONE (14:39)
--- NOTE | 2018-05-06 19:38 | CT ---
EXAM DATE: 05/06/2018 7:22 PM EDT AGE/SEX: 77 years / Male INDICATIONS: Fever. Sepsis. Evaluate for possible pyelo or colitis. CLINICAL DATA: This is the patient's initial encounter. Patient reports that signs and symptoms have been present for 2 days and indicates a pain score of 0/10. MEDICAL/SURGICAL HISTORY: Renal calculi. Fusion, lumbar. Neck surgery. RADIATION DOSE: 8.94 CTDI (mGy) COMPARISON: No prior exams available for comparison. TECHNIQUE: Multiple contiguous axial images were obtained through the abdomen. Images were obtained using multiple row detector helical technique. Using automated exposure control and adjustment of the mA and/or kV according to patient size, radiation dose was kept as low as reasonably achievable to o btain optimal diagnostic quality images. DICOM format image data is available electronically for rev iew and comparison. FINDINGS: Lower Lungs: There is aeration of the right hemidiaphragm with mild bronchiectasis and apparent scarr ing in the right lower lobe. There are small noncalcified pulmonary nodules in both lung bases. These measure 3 to 4 mm in size. Coronary artery calcifications are incidentally noted. Liver: The liver has a homogeneous density with a benign-appearing cystic lesion in the central liver measuring up to approximately 2.8 x 2.4 cm in diameter. There is a smaller 1 cm cystic lesion in the anterior liver. There is no dilation of the biliary tree. Spleen: Homogeneous density without enlargement. Pancreas: Unremarkable without mass or calcification. Kidneys: Normal in size and shape. No evidence of mass or hydronephrosis. There are multiple bilater al nonobstructing renal calculi. On the right there are 3 stones the largest measures up to approxima tely 8 mm. On the left there are at least 5 calculi. The ureters are unremarkable. There is adjacent calcified phleboliths and vascular calcifications in the pelvis. There is no inflammatory change is i dentified. Adrenal Glands: Unremarkable. Aorta: The aorta and proximal iliac vessels are grossly unremarkable without aneurysmal dilation. Bowel/Mesentery: There are multiple scattered diverticuli present. This is greatest in the sigmoid c olon. There is apparent mild surrounding inflammatory change most characteristic of mild acute divert iculitis. There is no free air or fluid. There is a nonobstructive bowel gas pattern. Abdominal Wall: Intact. Retroperitoneum: No evidence of adenopathy in the retrocrural, para-aortic, or deep pelvic regions. Bladder: Contours are smooth. Reproductive Organs: No abnormal masses or calcifications seen. Inguinal: The inguinal region is unremarkable without evidence of adenopathy. Bony Structures: Osteopenia, degenerative change and scoliosis are present. There are postoperative changes in the lumbar spine status post multilevel fusion. CONCLUSION: 1. Mild to moderate diverticulosis with apparent mild inflammatory change in the sigmoid colon most characteristic of mild acute diverticulitis. Multiple nonobstructing bilateral renal calculi. 2. Benign-appearing cystic structures in the liver. 3. Elevation the right hemidiaphragm with mild bronchiectasis and apparent scarring in the right calista g base. 4. Multiple small noncalcified pulmonary nodules in the lung bases. This is a nonspecific finding. Electronically signed by: Edmundo Gu MD 05/06/2018 7:37 PM EDT
[2018-05-06] MEDS ORDERED: Famotidine 20 MG Tablet PO SCH (21:00)
[2018-05-07] MEDS: Sod Chloride 0.9% Inj 1,000 ML IV.CONT SCH (06:36)
[2018-05-07 06:59] LABS: Baso % (Auto) 0.3 % (0.0-2.0); Eos # (Auto) 0.1 th/mm3 (0.0-0.4); Eos % (Auto) 0.7 % (0.0-4.0); Hematocrit 38.6 % (39.0-51.0); Lymph # (Auto) 0.9 th/mm3 (1.0-4.8); Lymph % (Auto) 6.6 % (9.0-44.0); Mean Corpuscular HGB Conc 33.7 % (32.0-36.0); Mean Corpuscular Hemoglobin 30.9 pg (27.0-34.0); Mean Corpuscular Volume 91.7 fL (80.0-100.0); Mean Platelet Volume 8.1 fL (7.0-11.0); Mono # (Auto) 1.1 th/mm3 (0.0-0.9); Mono % (Auto) 8.9 % (0.0-8.0); Neut # (Auto) 10.8 th/mm3 (1.8-7.7); Neut % (Auto) 83.5 % (16.0-70.0); Platelet Count 168 th/mm3 (150-450); Red Blood Count 4.21 mil/mm3 (4.50-5.90); White Blood Count 12.9 th/mm3 (4.0-11.0)
[2018-05-07 07:38] LABS: Alanine Aminotransferase 31 U/L (12-78); Albumin 2.7 g/dL (3.4-5.0); Anion Gap 9 meq/L (5-15); Aspartate Aminotransferase 30 U/L (15-37); Calcium 7.8 mg/dL (8.5-10.1); Carbon Dioxide 22.4 meq/L (21.0-32.0); Chloride 108 meq/L (98-107); Glomerular Filtration Rate 75 mL/min (>89); Glucose,Random 122 mg/dL (74-106); Potassium 3.4 meq/L (3.5-5.1); Sodium 139 meq/L (136-145)
[2018-05-07 07:45] LABS: Alkaline Phosphatase 58 U/L (45-117); Blood Urea Nitrogen 18 mg/dL (7-18); Total Protein 6.2 g/dL (6.4-8.2)
[2018-05-07] MEDS ORDERED: Ciprofloxacin 500 MG Tablet PO SCH (09:00)
--- NOTE | 2018-05-07 12:13 | ECG ---
Date Performed: 05/05/2018 Time Performed: 20:29:50 PTAGE: 77 years EKG: SINUS TACHYCARDIA ABNORMAL RHYTHM ECG NO PREVIOUS TRACING DOCTOR: Yogesh Rodriguez Interpretating Date/Time 05/07/2018 12:10:41
--- NOTE | 2018-05-07 12:51 | P.DS ---
Date of admission: 05/06/18 00:18 Primary care physician: Yogesh Emanuel MD Attending physician on discharge: Ryan Dickey Anticipated date of discharge: 05/07/18 Brief History from admission: This is a 77-year-old male with no significant PMH who was sent to the ER from [facility] due to generalized weakness. Per report, pt had activated his medical alert button, however he states it was unintentional. Upon EMS arrival, pt noted to hypotensive and tachycardic w/ multiple PVCs, s/p IVF w/ improvement. Reports ongoing cough for "few months" w/ white-colored sputum, seen by PCP and told it was due to allergies, however now w/ yellow/green-colored sputum x1 wk. Denies fever, chills, SOB or chest pain. On arrival, BP 116/66, HR 126, O2 sat 94% on RA, Temp 99.2. CBC 20.6. INR 1.2. K+ 3.1. Creatinine 1.60, previously 1.29 on 02/28/18. Lactic Acid 3.5. CXR w/ no acute findings. U/a w/ hematuria, negative for UTI. S/p Vanc/Zosyn Patient update on day of discharge: Patient reports feeling back to his baseline. Asking to go home. Reports he has an appointment with his PCP tomorrow DS: Diagnosis - Discharge Diagnosis (1) Diverticulitis Status: Acute DS: Medications - Discharge Medications Prescriptions: ciprofloxacin HCl 500 mg PO Q12HR 7 Days tab metronidazole 500 mg PO Q8HR 7 Days tab DS: Summary Hospital Course: 77-year-old male with past medical history of chronic back pain who was sent to the ER from [facility] due to generalized weakness. Per report, pt had activated his medical alert button, however he states it was unintentional. Upon EMS arrival , pt noted to hypotensive and tachycardic. Temp 99.2. WBC 20.6. Creatinine 1.60, previously 1.29 on 02/28/18. Lactic Acid 3.5. CXR w/ no acute findings. U /a w/ hematuria, negative for UTI. SIRS: Unclear source. Possibly GI or . -We will check CT abdomen to evaluate for possible pyelonephritis, colitis, diverticulitis, etc. -Continue antibiotics with IV cefepime -Stool cultures for enteric pathogens and C. difficile. -White blood cell count 20.6 on admission -> 12.9 (05/07) -CT abd/pelvis: 1. Mild to moderate diverticulosis with apparent mild inflammatory change in the sigmoid colon most characteristic of mild acute diverticulitis. Multiple nonobstructing bilateral renal calculi. 2. Benign-appearing cystic structures in the liver. 3. Elevation the right hemidiaphragm with mild bronchiectasis and apparent scarring in the right lung base. 4. Multiple small noncalcified pulmonary nodules in the lung bases. This is a nonspecific finding. -Recommend patient have follow-up outpatient CT chest scan to further evaluate pulmonary nodules in 3 months, patient reports he has PCP appointment 05/08/2018 Patient reports he feels he is back to his baseline. Denies shortness of breath chest pain nausea vomiting diarrhea constipation fevers chills cough or congestion. Patient reports he has outpatient appointment with his PCP tomorrow and would like to be discharged today so he can make his appointment. Discharge patient home on Cipro and Flagyl p.o. REFUGIO: Improving with IVF. -Continue IVF Hematuria: Possibly secondary to nephrolithiasis, rule out pyelonephritis --CT abd/pelvis: 1. Mild to moderate diverticulosis with apparent mild inflammatory change in the sigmoid colon most characteristic of mild acute diverticulitis. Multiple nonobstructing bilateral renal calculi. 2. Benign-appearing cystic structures in the liver. 3. Elevation the right hemidiaphragm with mild bronchiectasis and apparent scarring in the right lung base. 4. Multiple small noncalcified pulmonary nodules in the lung bases. This is a nonspecific finding. -Monitor Discussed Condition With: Patient, RN, Dr. Dickey - Time Spent with Patient Total time spent providing and/or coordinating discharge services: Greater than 30 minutes - Quality: VTE Deep Vein Thrombosis/Pulmonary Embolism Present on Admission: No Exam Vital signs: Vital Signs 05/06/18 16:00 05/06/18 20:00 05/07/18 00:00 Temperature 98.0 F 98.3 F 98.1 F Pulse Rate 98 H 92 H 91 H Respiratory Rate 19 18 18 Blood Pressure 152/73 H 160/81 H 131/97 H Pulse Oximetry 96 94 L 94 L 05/07/18 04:00 05/07/18 08:00 05/07/18 12:00 Temperature 97.5 F L 97.0 F L 98.1 F Pulse Rate 91 H 79 80 Respiratory Rate 18 16 17 Blood Pressure 143/74 H 113/67 135/76 Pulse Oximetry 94 L 96 98 Intake & Output 05/06/18 05/07/18 05/07/18 18:59 06:59 18:59 Intake Total 2059 / 2059 2099 / 2099 Output Total 900 / 900 400 / 400 Balance 1160 / 1160 1700 / 1700 Weight 78.5 kg Intake: IV 1100 / 1100 2099 / 2100 NS Inj 1,000 ML @ 100 mls/hr IV 1000 / 1000 2000 / 2000 .CONT .Q10H JOSE Rx#:[id number] Maxipime Inj 1,000 MG In NS Inj 100 / 100 100 / 100 100 ML @ 200 mls/hr IV.SIG Q12H JOSE Rx#:[id number] Oral 960 / 960 Output: Urine 900 / 900 400 / 400 Other: Date of Last Bowel Movement 05/06/18 # Bowel Movements 3 Narrative: GENERAL: Well-developed well-nourished. In no acute distress. SKIN: Warm and dry. No lesions noted. CARDIOVASCULAR: Regular rate and rhythm. No murmur appreciated. RESPIRATORY: No accessory muscle use. Clear to auscultation. Breath sounds equal bilaterally. GASTROINTESTINAL: Abdomen soft, non-tender, nondistended. Bowel sounds x4. Pain pump in place right abdomen. MUSCULOSKELETAL: No obvious deformities. No clubbing or cyanosis. No edema. NEUROLOGICAL: Awake and alert. No focal neurological deficits. Moves upper and lower extremities spontaneously. Normal speech. PSYCHIATRIC: Appropriate mood and affect; insight and judgment normal Results Procedures completed during hospitalization: none Labs on day of discharge: Labs from last 24 hours 05/07/18 05/07/18 04:51 04:51 WBC 12.9 H RBC 4.21 L Hgb 13.0 Hct 38.6 L MCV 91.7 MCH 30.9 MCHC 33.7 RDW 14.0 Plt Count 168 MPV 8.1 Neut % (Auto) 83.5 H Lymph % (Auto) 6.6 L [place] % (Auto) 8.9 H Eos % (Auto) 0.7 Baso % (Auto) 0.3 Neut # (Auto) 10.8 H Lymph # (Auto) 0.9 L [place] # (Auto) 1.1 H Eos # (Auto) 0.1 Baso # (Auto) 0.0 WBC Differential . Differential Comment Auto diff final Sodium 139 Potassium 3.4 L Chloride 108 H Carbon Dioxide 22.4 Anion Gap 9 BUN 18 Creatinine 0.97 Estimated GFR 75 L Random Glucose 122 H Calcium 7.8 L Total Bilirubin 0.4 AST 30 ALT 31 Alkaline Phosphatase 58 Total Protein 6.2 L D Albumin 2.7 L Preliminary micro results at discharge 05/05/18 20:35 Aerobic Blood Culture - Preliminary Blood - Peripheral No growth in 2 days Anaerobic Blood Culture - Preliminary No growth in 2 days 05/05/18 20:40 Aerobic Blood Culture - Preliminary Blood - Peripheral No growth in 2 days Anaerobic Blood Culture - Preliminary No growth in 2 days - Impressions ITS Impressions Chest X-Ray 05/05/18 20:28 CONCLUSION: 1. Elevation of the right hemidiaphragm. 2. No focal infiltrate or pulmonary vascular congestion. Head CT 05/05/18 20:29 CONCLUSION: 1. Age-appropriate atrophy. 2. No acute findings in the brain. . Abdomen/Pelvis CT 05/06/18 00:00 CONCLUSION: 1. Mild to moderate diverticulosis with apparent mild inflammatory change in the sigmoid colon most characteristic of mild acute diverticulitis. Multiple nonobstructing bilateral renal calculi. 2. Benign-appearing cystic structures in the liver. 3. Elevation the right hemidiaphragm with mild bronchiectasis and apparent scarring in the right lung base. 4. Multiple small noncalcified pulmonary nodules in the lung bases. This is a nonspecific finding. Discharge Plan - Discharge Disposition Patient Disposition: 01 Discharge Home - Discharge Condition Condition: Stable - Discharge Order Discharge Orders: Discharge Order (Routine); Ordered 05/07/18 Ordered By: Philly Rivero - Discharge Details Anticipated Discharge Date: 05/07/18 - Physicians Team Primary Care Provider: Yogesh Emanuel Attending Provider: Ryan Dickey
[2018-05-07] MEDS ORDERED: metroNIDAZOLE 500 MG Tablet PO SCH (14:00)
[2018-05-08] MEDS ORDERED: Pharmacy Ordered Lab Info OTHER ONE (17:45)
== END 2018-05-07 14:20 | disposition home or self-care (01) ==
LOC: NEPC 20:04 → NEDA 05-06 00:18 → N07 05-06 02:29
PROVIDERS: ADMIT Internal Medicine; ATTEND Internal Medicine